=== PATIENT | female | born 1990 | race Caucasian/White ===

== ENCOUNTER → 2016-12-01 | Outpatient (CLI) | payer OTHER ==
--- NOTE | 2016-12-01 10:41 | RAD ---
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 TECHNIQUE: Routine multiplanar sequences are obtained. FINDINGS: Motion degradation despite repeating images. There is a defect or ulcer at the lateral foot, superolateral to the talonavicular joint. Soft tissue induration and abnormal edema around the ulcer and adjacent soft tissues. This abnormal tissue does surround the extensor digitorum longus tendons, which appear to be intrinsically intact. No evidence of an organized or drainable fluid collection or abscess. No bone destruction, marrow edema or evidence of acute osteomyelitis. No acute fracture. No significant joint effusion. The tarsal sinus is unremarkable. Subtalar joints are intact. Mild edema and atrophy of the visualized foot musculature. Note is made of lateral flexion of the talus at the talonavicular joint on the axial images. IMPRESSION: 1. Soft tissue ulcer, located posterolateral to the talonavicular joint, with surrounding soft tissue edema and or infection. 2. No evidence of drainable abscess or acute osteomyelitis. Electronically signed by: Luis Howell MD (12/01/2016 10:38 AM)
== END | disposition home or self-care (01) ==
LOC: MRI 08:25
PROVIDERS: ATTEND Internal Medicine Infectious Disease
DX: M86.8X7 Other osteomyelitis, ankle and foot (principal)
CPT/HCPCS: 73721

== ENCOUNTER → 2017-02-16 | Outpatient (CLI) | payer MEDICAID | END | disposition home or self-care (01) | LOC: PMGWOUND 08:46 | PROVIDERS: ATTEND Preventive Medicine Undersea and Hyperbaric Medicine | DX: E11.621 Type 2 diabetes mellitus with foot ulcer (principal); L97.521 Non-pressure chronic ulcer of other part of left foot limited to breakdown of skin; L97.414 Non-pressure chronic ulcer of right heel and midfoot with necrosis of bone; E11.69 Type 2 diabetes mellitus with other specified complication; M86.68 Other chronic osteomyelitis, other site; E78.5 Hyperlipidemia, unspecified; E11.42 Type 2 diabetes mellitus with diabetic polyneuropathy; J45.909 Unspecified asthma, uncomplicated; Z86.14 Personal history of Methicillin resistant Staphylococcus aureus infection; Z87.891 Personal history of nicotine dependence | CPT/HCPCS: 97597; 97598 ==

== ENCOUNTER → 2017-02-23 | Outpatient (CLI) | payer MEDICAID | END | disposition home or self-care (01) | LOC: PMGWOUND 08:53 | PROVIDERS: ATTEND Preventive Medicine Undersea and Hyperbaric Medicine | DX: E10.621 Type 1 diabetes mellitus with foot ulcer (principal); L97.414 Non-pressure chronic ulcer of right heel and midfoot with necrosis of bone; E10.69 Type 1 diabetes mellitus with other specified complication; M86.68 Other chronic osteomyelitis, other site; J45.909 Unspecified asthma, uncomplicated; E10.40 Type 1 diabetes mellitus with diabetic neuropathy, unspecified; E78.5 Hyperlipidemia, unspecified; Z86.14 Personal history of Methicillin resistant Staphylococcus aureus infection; Z87.891 Personal history of nicotine dependence | CPT/HCPCS: 11042; 11045; 97597 ==